=== PATIENT | male | born 2005 | race Hispanic/Latino ===

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

== ENCOUNTER 2024-09-20 23:13 | Emergency (ER) | payer OTHER, SELFPAY ==
[2024-09-21] MEDS ORDERED: TETRACAINE HCL 0.5% 4ML OPTH ONE (00:42)
--- NOTE | 2024-09-21 01:14 | ER ---
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 Coronavirus screen: Client denies travel out of the [place] in the last 14 days. Ebola Screen: Patient denies exposure to infectious person. Initial Sepsis Screen: Does the patient meet any 2 criteria? No. Patient's initial sepsis screen is negative. Does the patient have a suspected source of infection? No. Patient's initial sepsis screen is negative. Risk Assessment: Do you want to hurt yourself or someone else? Patient reports no desire to harm self or others. Onset of symptoms was September 20, 2024 at 13:00. 00:32 Method Of Arrival: Ambulatory br2 00:32 Acuity: ANDRE 4 br2 Triage Assessment: 00:35 General: Appears uncomfortable, Behavior is calm, cooperative. Pain: Complains of pain br2 in left eye Pain currently is 4 out of 10 on a pain scale. EENT: Reports pain in left eye. Historical: - Allergies: 00:35 fish; br2 - Immunization history:: Adult Immunizations up to date. - Infectious Disease History:: Denies. - Family history:: not pertinent. - Social history:: Smoking status: Patient denies any tobacco usage or history of. Patient/guardian denies using alcohol, street drugs. - Hospitalizations: : No recent hospitalization is reported. Screenin:54 [facility] ED Fall Risk Assessment (Adult) History of falling in the last 3 months, rg5 including since admission No falls in past 3 months (0 pts) Confusion or Disorientation No (0 pts) Intoxicated or Sedated No (0 pts) Impaired Gait No (0 pts) Mobility Assist Device Used No (0 pt) Altered Elimination No (0 pt) Score/Fall Risk Level 0 - 2 = Low Risk Oriented to surroundings. Abuse screen: Denies threats or abuse. Nutritional screening: No deficits noted. Tuberculosis screening: No symptoms or risk factors identified. Assessment: 00:54 General: Appears in no apparent distress. Behavior is calm, cooperative, appropriate rg5 for age. Pain: Complains of pain in left eye Quality of pain is described as burning, Pain began 4 hours ago. Neuro: Level of Consciousness is awake, alert, obeys commands, Oriented to person, place, time, situation. Cardiovascular: Denies chest pain, Patient's skin is warm and dry. Respiratory: Airway is patent Trachea midline Respiratory effort is even, unlabored, Respiratory pattern is regular, symmetrical. GI: No signs and/or symptoms were reported involving the gastrointestinal system. : No signs and/or symptoms were reported regarding the genitourinary system. EENT: Eyes are tearing on outer aspect of conjuctiva of left eye and inner aspect of conjunctiva of left eye. Derm: Skin is intact, Skin is dry, Skin is normal, Skin temperature is warm. Musculoskeletal: Circulation, motion, and sensation intact. Range of motion:. 01:24 Reassessment: Patient and/or family updated on plan of care and expected duration. Pain rg5 level reassessed. Patient is alert, oriented x 3, equal unlabored respirations, skin warm/dry/pink. Patient states feeling better. Patient states symptoms have improved. Vital Signs: 00:32 BP 127 / 73; Pulse 65; Resp 18; Temp 98.3; Pulse Ox 100% ; Weight 63.5 kg; Height 5 ft. br2 6 in. ; Pain 4/10; 01:00 BP 121 / 78; Pulse 67; Resp 17; Pulse Ox 100% on R/A; Pain 0/10; rg5 00:32 Body Mass Index 22.60 (63.50 kg, 167.64 cm) br2 00:32 Pain Scale: Adult br2 01:00 Pain Scale: Adult rg5 ED Course: 09/20 23:23 Patient arrived in ED. im 23:24 Shayne Henderson MD is Attending Physician. rn 09/21 00:35 Triage completed. br2 00:35 Arm band placed on. br2 00:40 Yomi Rushing RN is Primary Nurse. rg5 00:54 Patient has correct armband on for positive identification. rg5 00:54 No provider procedures requiring assistance completed. Patient did not have IV access rg5 during this emergency room visit. 00:56 Eye irrigation of left eye Patient tolerated well. rg5 01:24 Provided Education on: post er care done. rg5 Administered Medications: 00:35 Drug: Tetracaine Ophthalmic Drops 0.5 % 2 drops Ophthalmic once Route: Ophthalmic; rg5 Site: left eye; Medication: 00:54 VIS not applicable for this client. rg5 Outcome: 01:14 Discharge ordered by . rn 01:24 Discharged to home ambulatory, rg5 01:24 Condition: stable 01:24 Discharge instructions given to patient, Instructed on discharge instructions, follow up and referral plans. Demonstrated understanding of instructions, follow-up care, 01:25 Patient left the ED. rg5 Signatures: Shayne Henderson MD MD rn Mendoza, Itzel im Gallardo, Rommel, RN RN rg5 Terra Berman RN RN br2
--- NOTE | 2024-09-21 01:14 | EDPHYS ---
Physician Documentation [facility] Name: Nicolas Lam Age: 19 yrs Sex: Male : 2005 Arrival Date: 09/20/2024 Time: 23:13 Bed 13 Private MD: ED Physician Shayne Henderson HPI: 09/21 00:30 This 19 yrs old Male presents to ER via Unassigned with complaints of Chemical rn Exposure In Eye. 00:30 The patient is experiencing pain, redness, The patient sustained a splash, to the left rn eye, caused by chemicals, cleaning solution. Onset: The symptoms/episode began/occurred 12 hour(s) ago. Duration: the symptoms are continuous. Aggravated by nothing. Alleviated by nothing. Severity of symptoms: At their worst the symptoms were moderate in the emergency department the symptoms are unchanged. The patient has not experienced similar symptoms in the past. Patient reports was at work and accidentally splashed a small amount of dishwashing solution/disinfectant into left eye. Already seen by physician at his work, eye was irrigated but only for about 5 minutes per patient and prescribed erythromycin ointment. Continues to have irritation to the left eye. No blurred vision. Came for reevaluation.. Historical: - Allergies: 00:35 fish; br2 - Immunization history:: Adult Immunizations up to date. - Infectious Disease History:: Denies. - Family history:: not pertinent. - Social history:: Smoking status: Patient denies any tobacco usage or history of. Patient/guardian denies using alcohol, street drugs. - Hospitalizations: : No recent hospitalization is reported. ROS: 00:30 Constitutional: Negative for fever, chills, and weight loss, Eyes: Positive for redness rn and discomfort of the left eye Exam: 00:30 Constitutional: This is a well developed, well nourished patient who is awake, alert, rn and in no acute distress. Eyes: Left conjunctiva with injection and erythema. Cornea normal without ulceration or foreign body. No hypopyon. Vital Signs: 00:32 BP 127 / 73; Pulse 65; Resp 18; Temp 98.3; Pulse Ox 100% ; Weight 63.5 kg; Height 5 ft. br2 6 in. ; Pain 4/10; 01:00 BP 121 / 78; Pulse 67; Resp 17; Pulse Ox 100% on R/A; Pain 0/10; rg5 00:32 Body Mass Index 22.60 (63.50 kg, 167.64 cm) br2 00:32 Pain Scale: Adult br2 01:00 Pain Scale: Adult rg5 MDM: 09/20 23:24 Medical Screening Exam initiated rn 09/21 01:12 Differential diagnosis: Chemical conjunctivitis. Data reviewed: vital signs, nurses rn notes, and as a result, I will discharge patient. Counseling: I had a detailed discussion with the patient and/or guardian regarding the historical points, exam findings, and any diagnostic results supporting the discharge/admit diagnosis, the need for outpatient follow up, to return to the emergency department if symptoms worsen or persist or if there are any questions or concerns that arise at home. Response to treatment: the patient's symptoms have mildly improved after treatment, and as a result, I will discharge patient. Special discussion: I discussed with the patient/guardian in detail that at this point there is no indication for admission to the hospital. It is understood, however, that if the symptoms persist or worsen the patient needs to return immediately for re-evaluation. Based on the history and exam findings, there is no indication for further emergent testing or inpatient evaluation. I discussed with the patient/guardian the need to see the opthamologist for further evaluation of the symptoms. ED course: Patient given tetracaine drops and irrigated eyewash station for 15 to 20 minutes. Patient seems improved with ability to open eye more and less irritation. Patient states feels better. Unfortunately patient presented 12 hours status post injury and I spoke with patient and mother regarding late presentation and how likely the damage has been done. Already has erythromycin ointment from mother physician, will discharge home with instructions to follow-up with ophthalmology for repeat exam and given return precautions.. 09/21 00:17 Order name: [facility]. Order: eye irrigation with eye wash station x 15 min, after rn tetracaine administered; Complete Time: 00:57 Administered Medications: 00:35 Drug: Tetracaine Ophthalmic Drops 0.5 % 2 drops Ophthalmic once Route: Ophthalmic; rg5 Site: left eye; Disposition Summary: 09/21/24 01:14 Discharge Ordered Notes: Location: Home rn Problem: new rn Symptoms: have improved rn Condition: Stable rn Diagnosis - Contact with and (suspected) exposure to hazardous, chiefly nonmedicinal, chemicals rn - Unspecified acute conjunctivitis, left eye - chemical rn Followup: rn - With: Private Physician - When: As needed - Reason: Recheck today's complaints, Re-evaluation by your physician Discharge Instructions: - Discharge Summary Sheet rn - Chemical Conjunctivitis, Adult rn Forms: - Medication 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
[2024-09-21 01:30] VITALS: TEMP 98.3; O2SAT 100
[2024-09-21 01:32] VITALS: BP 121/78
== END 2024-09-21 01:25 | disposition home or self-care (01) ==
LOC: ER 23:13
DX: Z77.098 Contact with and (suspected) exposure to other hazardous, chiefly nonmedicinal, chemicals (principal); H10.212 Acute toxic conjunctivitis, left eye
CPT/HCPCS: 99283